=== PATIENT | female | born 2000 | race Two or more races ===

== ENCOUNTER → 2020-10-14 15:00 | Outpatient (CLI) | payer OTHER | END | disposition home or self-care (01) | LOC: PPH VACUNA 15:00 | DX: Z23 Encounter for immunization (principal) ==

== ENCOUNTER → 2020-11-04 14:25 | Outpatient (CLI) | payer OTHER | END | disposition home or self-care (01) | LOC: PPH VACUNA 14:25 | DX: Z23 Encounter for immunization (principal) ==